=== PATIENT | male | born 1965 | race Caucasian/White ===

== ENCOUNTER 2017-03-19 10:27 | Inpatient (IN) | payer OTHER ==
[~2017-03-19] VITALS: Ht 177.8 cm; Wt 92.5 kg
--- NOTE | ~2017-03-19 | HC ---
[facility] [place] [address] CONSULTATION Name: MAEGAN TAFOYA Room #: 358-P [facility] IN M.R.#: [id number] Admission: 03/19/17 Attend Phys: Maegan Butler DO Discharge: 03/20/17 Date of : 61 Report #: [id number] THIS REPORT FOR: //name// CC: Merline Butler HISTORY OF PRESENT ILLNESS: This patient is seen in regard to mild pancytopenia. He was admitted through the Emergency Room with recent onset of nausea, abdominal pain, dark stools and hematemesis. He has been found to have a GI bleed. He has been a patient previously at [facility] and those records were available to me. He came to [place] because of being a less busy ER location. PAST MEDICAL HISTORY: Significant for prior hepatitis C. He is known to have cirrhosis with ascites and portal hypertension. He has esophageal varices, which have been banded. He has had prior coronary artery disease with stents, COPD and diabetes mellitus. He has undergone a previous liver biopsy and lung biopsy. ALLERGIES: ATIVAN AND MORPHINE. MEDICATIONS: As listed on the MFR. SOCIAL HISTORY: He is a smoker and nondrinker. FAMILY HISTORY: Negative. REVIEW OF SYSTEMS: As in the history of present illness. PHYSICAL EXAMINATION: GENERAL: The patient is able to be awakened and was alert. HEENT: Normocephalic. NECK: Supple. CHEST: Clear. ABDOMEN: Reveals a palpable and percussible spleen. EXTREMITIES: Showed trace of ankle edema. NEUROLOGIC: No focal localizing signs. PSYCHIATRIC: Not agitated or confused. LYMPHATICS: Revealed no palpable supraclavicular adenopathy. LABORATORY DATA: At [place], initially showed a white count of 1400 prompting the consultation. Hemoglobin of 7.3 grams with normal indices and a platelet count of 26,000. [facility] [address] [place] [address] CONSULTATION Name: MAEGAN TAFOYA Room #: 358-P [facility] IN M.R.#: [id number] Admission: 03/19/17 Attend Phys: Maegan Butler DO Discharge: 03/20/17 Date of : 61 Report #: [id number] Subsequent repeat CBC shows improvement in his white count to 4100 and platelets of 50,000. His records from 03/02/2017 showed a white count of 3500, hemoglobin 10.6 and a platelet count of 68,000. The white count was 1700 on 01/23/2017 with a platelet count of 38,000. ASSESSMENT: Mild pancytopenia due to known hepatitis C and liver disease with cirrhosis and subsequent hypersplenism. CT scan from shows a spleen measuring 20 cm. The patient is to undergo EGD for further evaluations. We will check a fibrinogen, but relatively normal PT, PTT, which would speak against DIC. Unless he has other issues, he currently appears to be stable and not in need of further transfusions as he has received red cells for his earlier GI blood loss. Thanks for asking us to participate in his care. By: 1020 2043 Eliza Vines MD /nt
[2017-03-19 10:28] VITALS: BP 124/72
[2017-03-19] MEDS ORDERED: ACCUNEB SO1.25 MG/1 INH ×2 (10:49→10:51)
[2017-03-19] MEDS ORDERED: NORCO 10-325 T1 EACH PO (10:49)
[2017-03-19] MEDS ORDERED: LYRICA150 MG PO (10:50)
[2017-03-19] MEDS ORDERED: TERAZOSIN HCL5 MG PO (10:51)
[2017-03-19] MEDS ORDERED: LANTUS SUBQ (10:51)
[2017-03-19] MEDS ORDERED: NOVOLOG100 UNIT/1 SUBQ (10:52)
[2017-03-19] MEDS ORDERED: PROPRANOLOL 20M20 M1 PO (10:52)
[2017-03-19] MEDS ORDERED: AMARYL2 MG PO (10:53)
[2017-03-19] MEDS ORDERED: LASIX 40 MG TAB40 M2 PO (10:53)
[2017-03-19] MEDS ORDERED: XIFAXAN550 M1 PO (10:53)
[2017-03-19] MEDS ORDERED: LASIX 20 MG TAB20 MG PO (10:53)
[2017-03-19] MEDS ORDERED: ASPIR 8181 MG PO (10:54)
[2017-03-19 11:01] LABS: BASOPHILS 0.9 % (0.0-2.0); EOSINOPHILS 4.8 % (0.0-3.0); HEMATOCRIT 29.7 % (42.0-52.0); LYMPHOCYTES 16.7 % (24.0-44.0); MCH 29.7 pg (26.0-34.0); MCHC 33.5 g/dL (28.0-37.0); MCV 88.4 fL (80.0-100.0); MONOCYTES 7.9 % (1.0-8.0); POLYS 69.7 % (36.0-66.0); RBC 3.36 mil/uL (4.50-6.00); RDW 19.9 % (10.5-14.5); WBC 4.3 thou/uL (4.0-11.0)
[2017-03-19 11:02] LABS: MANUAL DIFF NO
[2017-03-19 11:11] LABS: CALCIUM 8.8 mg/dL (8.5-10.1); CREATININE 0.9 mg/dL (0.7-1.3); POTASSIUM 5.6 mmol/L (3.5-5.1)
[2017-03-19 11:12] LABS: APTT 28.7 Seconds (24.5-32.8); INR 1.3; PROTIME 13.5 Seconds (9.3-11.4)
[2017-03-19 11:17] LABS: ALBUMIN 2.9 g/dL (3.4-5.0); DIRECT BILIRUBIN 0.4 mg/dL (<0.1-0.3); TOTAL BILIRUBIN 1.7 mg/dL (<0.1-1.0); TOTAL PROTEIN 7.4 g/dL (6.4-8.2)
[2017-03-19 12:09] LABS: PLATELET COUNT 50 thou/uL (150-400); PLATELET ESTIMATE DECREASED
[2017-03-19 12:16] VITALS: BP 114/62
[2017-03-19 12:46] VITALS: BP 115/81
[2017-03-19 15:16] VITALS: BP 124/63
[2017-03-19 19:03] VITALS: BP 112/60
[2017-03-19 21:12] LABS: HEMATOCRIT 25.6 % (42.0-52.0); HEMOGLOBIN 8.6 gm/dL (14.0-18.0)
[2017-03-20 05:15] VITALS: BP 104/40
[2017-03-20 06:34] LABS: CALCIUM 7.8 mg/dL (8.5-10.1); CREATININE 1.2 mg/dL (0.7-1.3); POTASSIUM 4.7 mmol/L (3.5-5.1)
[2017-03-20 07:20] VITALS: BP 91/51
[2017-03-20 09:22] LABS: HEMOGLOBIN 7.3 gm/dL (14.0-18.0)
[2017-03-20 09:24] LABS: HEMATOCRIT 21.6 % (42.0-52.0); MANUAL DIFF YES; MCH 29.7 pg (26.0-34.0); MCHC 33.7 g/dL (28.0-37.0); MCV 88.1 fL (80.0-100.0); PLATELET COUNT 26 thou/uL (150-400); RBC 2.45 mil/uL (4.50-6.00); RDW 19.4 % (10.5-14.5)
[2017-03-20 09:27] LABS: WBC 1.4 thou/uL (4.0-11.0)
[2017-03-20 09:52] LABS: ABSOLUTE NEUTROPHILS 0.7 thou/uL (1.4-8.2); ATYPICAL LYMPHS 2 %; TOTAL CELL COUNT 100
[2017-03-20 09:53] LABS: ANISOCYTOSIS 2+
[2017-03-20 11:22] VITALS: BP 90/47
[2017-03-20 15:48] VITALS: BP 90/47
== END 2017-03-20 17:35 | disposition home or self-care (01) | DRG 377 ==
LOC: ER 10:27 → 3W 11:52 → EROBS 11:52 → 3W 12:30 → ENTRNSPT 03-20 16:09 → 3W 03-20 17:35
PROVIDERS: Emergency Medicine; Family Medicine
DX: K92.2 Gastrointestinal hemorrhage, unspecified (principal); G93.40 Encephalopathy, unspecified; D62 Acute posthemorrhagic anemia; K76.6 Portal hypertension; D61.818 Other pancytopenia; J44.9 Chronic obstructive pulmonary disease, unspecified; I25.10 Atherosclerotic heart disease of native coronary artery without angina pectoris; E11.9 Type 2 diabetes mellitus without complications; G89.29 Other chronic pain; F17.210 Nicotine dependence, cigarettes, uncomplicated; K74.60 Unspecified cirrhosis of liver; B18.2 Chronic viral hepatitis C; K21.9 Gastro-esophageal reflux disease without esophagitis; M54.5 Low back pain; D73.1 Hypersplenism; Z95.5 Presence of coronary angioplasty implant and graft; Z88.8 Allergy status to other drugs, medicaments and biological substances; Z79.4 Long term (current) use of insulin; Z79.82 Long term (current) use of aspirin; Z79.899 Other long term (current) drug therapy
CPT/HCPCS: 10779

== ENCOUNTER 2018-07-15 16:52 | Inpatient (IN) | payer OTHER ==
[~2018-07-15] VITALS: Ht 177.8 cm; Wt 86.7 kg
[2018-07-15 16:52] VITALS: BP 129/73
[~2018-07-15 16:52] MED LIST: ACCUNEB SO1.25 MG/1 INH; AMARYL2 MG PO; ASPIR 8181 MG PO; LANTUS SUBQ; LASIX 20 MG TAB20 MG PO; LASIX 40 MG TAB40 M2 PO; LYRICA150 MG PO; NORCO 10-325 T1 EACH PO; NOVOLOG100 UNIT/1 SUBQ; PROPRANOLOL 20M20 M1 PO; TERAZOSIN HCL5 MG PO; XIFAXAN550 M1 PO
[2018-07-15] MEDS ORDERED: METFORMIN HCL500 MG PO (17:18)
[2018-07-15] MEDS ORDERED: CIPRO500 MG PO (17:19)
[2018-07-15 17:50] LABS: ABSOLUTE NEUTROPHILS 3.5 thou/uL (1.4-8.2); BASOPHILS 0.7 % (0.0-2.0); EOSINOPHILS 1.7 % (0.0-3.0); HEMATOCRIT 30.7 % (42.0-52.0); HEMOGLOBIN 10.7 gm/dL (14.0-18.0); LYMPHOCYTES 8.3 % (24.0-44.0); MCH 35.5 pg (26.0-34.0); MCHC 34.9 g/dL (28.0-37.0); MCV 101.9 fL (80.0-100.0); MONOCYTES 7.1 % (1.0-8.0); PLATELET COUNT 67 thou/uL (150-400); POLYS 82.2 % (36.0-66.0); RBC 3.01 mil/uL (4.50-6.00); RDW 17.3 % (10.5-14.5); WBC 4.3 thou/uL (4.0-11.0)
[2018-07-15 17:51] LABS: ANION GAP 10 mmol/L (7-16); BUN 29 mg/dL (7-18); CALCIUM 8.6 mg/dL (8.5-10.1); CHLORIDE 101 mmol/L (98-107); CO2 24 mmol/L (21-32); CREATININE 1.2 mg/dL (0.7-1.3); GLUCOSE 246 mg/dL (74-106); POTASSIUM 4.7 mmol/L (3.5-5.1); SODIUM 135 mmol/L (136-145)
[2018-07-15 18:01] LABS: ALBUMIN 2.8 g/dL (3.4-5.0); SGOT 28 U/L (15-37); SGPT 26 U/L (30-65); TOTAL BILIRUBIN 2.8 mg/dL (<0.1-1.0); TOTAL PROTEIN 7.2 g/dL (6.4-8.2); TROPONIN-I <0.06 ng/mL (<0.06)
[2018-07-15 18:06] LABS: APTT 28.6 Seconds (24.5-32.8); INR 1.4; PROTIME 14.7 Seconds (9.3-11.4)
[2018-07-15 18:15] VITALS: BP 129/73
[2018-07-15 20:16] VITALS: BP 110/78
[2018-07-15 20:25] VITALS: BP 98/64
[2018-07-15 21:38] VITALS: BP 105/60
[2018-07-15] MEDS ORDERED: ALDACTONE100 MG PO (22:02)
[2018-07-15] MEDS ORDERED: albuterol INH (22:02)
[2018-07-15] MEDS ORDERED: TRULICITY1.5 MG/0.5 SUBQ (22:05)
[2018-07-15 23:24] LABS: HEMOGLOBIN 8.8 gm/dL (14.0-18.0)
[2018-07-15 23:26] LABS: HEMATOCRIT 25.2 % (42.0-52.0)
[2018-07-16 00:11] VITALS: BP 82/55
[2018-07-16 04:13] LABS: INR 1.4; PROTIME 15.1 Seconds (9.3-11.4)
[2018-07-16 04:31] LABS: HEMOGLOBIN 8.2 gm/dL (14.0-18.0); MCV 102.7 fL (80.0-100.0)
[2018-07-16 04:34] VITALS: BP 92/42
[2018-07-16 04:34] LABS: HEMATOCRIT 23.7 % (42.0-52.0); MCH 35.6 pg (26.0-34.0); MCHC 34.6 g/dL (28.0-37.0); RBC 2.31 mil/uL (4.50-6.00); RDW 17.3 % (10.5-14.5)
[2018-07-16 04:38] LABS: WBC 1.9 thou/uL (4.0-11.0)
--- NOTE | 2018-07-16 06:48 | NUR ---
Patient arrived to unit at 2014 this shift. Patient ambulated self to bed. Patient complains of no nausea or vomiting this shift. No active bleeding. Dr. Linda of drop in Hgb. Patient arrived on 3L of 02 but decided to take it off stating he only uses it if he needs it. Patient slept some but woke up complaining of shortness of breath. 02 sat in the mid 80's room air. O2 at 3L per NC applied. 02 Sat up to 92-94%. GLASS FURNACE OPERATOR notified and orders recieved. RT notified of new orders and breathing treatment given. Critical white count reported to GLASS FURNACE OPERATOR as well as AM labs. Low BP also reported, 250 ml NS bolus given to patient. Protonix gtt, Octreotide and IV fluids infusing per orders. Patient kept NPO for US and EGD this AM. EGD consent obtained. Will continue to monitor.
--- NOTE | 2018-07-16 08:16 | NUR ---
PATIENT LEFT AMA AT THIS TIME. STATES HE DOES NOT FEEL HE HAS BEEN TREATED FAIRLY SINCE HE GOT ADMITTED LAST NIGHT. STATES HE IS DOING PARACENTESIS " I AM NOT LETTING ANYONE PUT A NEEDLE IN MY BELLY". WAS ON THE PHONE WITH PATIENT THIS AM STATING SHE IS GOING TO [facility] FOR [facility] TREATMENT OF HER . NURSE ATTEMPTED TO GET MORE INFORMATION OF WHAT THEY BOTH MEANT BY MALTREATMENT BUT THEY WILL NOT ELABORATE. IV TAKEN OUT AND PATIENT DRESSED HIMSELF, SIGNED THE AMA FORM AND LEFT THE ROOM WITH . NURSE WAS NOT GIVEN OPPORTUNITY TO REASON WITH PATIENT. HE KEEPS ON YELLING AND STATING HE DID NOT WANT TO HEAR ANYTHING. NOTIFIED. .
--- NOTE | 2018-07-17 18:24 | EKG ---
[place] [address] [facility] [place] [address] ELECTROCARDIOGRAM REPORT Name: MAEGAN TAFOYA Room #: 356-P [facility] IN M.R.#: [id number] ������������������ Admission: 07/15/18 ������������������ Attend Phys: William Zuniga Discharge: 07/16/18 ������������������ Date of : 61 Report #: [id number] ����������������������������������������������������������������� [id number] THIS REPORT FOR: //name// [facility] ED Test Date: 2018-07-15 Test Time: 17:11:09 Pat Name: MAEGAN TAFOYA Department: Room: 356 Gender: M Wireless Manager: LANA : 1965 Requested By: Hal Soto Order Number: [id number] MD: Chandan Almazan Measurements Intervals [place] Rate: 93 P: 73 OR: 161 QRS: -2 QRSD: 93 T: 50 QT: 389 QTc: 484 Interpretive Statements Sinus rhythm low voltage limb leads Nonspecific ST-T wave changes No previous ECG available for comparison Electronically Signed On 07-17-2018 18:24:16 CDT by Chandan Almazan [email or web address] ��������������������������������������������� <ELECTRONICALLY SIGNED> ���������������������������������������� By: Chandan Almazan MD ��������������������������������������������� 07/17/18 1824 1711 10 Chandan Almazan MD /REJI
== END 2018-07-16 08:23 | disposition left against medical advice (07) | DRG 378 ==
LOC: ER 16:52 → EROBS 18:06 → 3W 18:32
PROVIDERS: Emergency Medicine; Internal Medicine Gastroenterology; ADMIT Hospitalist
DX: K92.2 Gastrointestinal hemorrhage, unspecified (principal); R18.8 Other ascites; E87.1 Hypo-osmolality and hyponatremia; E11.9 Type 2 diabetes mellitus without complications; K92.0 Hematemesis; K74.60 Unspecified cirrhosis of liver; J44.9 Chronic obstructive pulmonary disease, unspecified; G89.29 Other chronic pain; M54.9 Dorsalgia, unspecified; K72.90 Hepatic failure, unspecified without coma; F17.210 Nicotine dependence, cigarettes, uncomplicated; B18.2 Chronic viral hepatitis C; Z53.21 Procedure and treatment not carried out due to patient leaving prior to being seen by health care provider; Z95.5 Presence of coronary angioplasty implant and graft; Z88.6 Allergy status to analgesic agent; Z88.8 Allergy status to other drugs, medicaments and biological substances; Z79.899 Other long term (current) drug therapy
CPT/HCPCS: 10879